=== PATIENT | female | born 1935 | race Hispanic/Latino ===

== ENCOUNTER 2021-01-26 14:14 | Outpatient (CLI) | payer MEDICARE, BC, OTHER ==
--- NOTE | 2021-01-26 15:54 | XRay Report ---
Left shoulder 3 views INDICATION: Shoulder pain FINDINGS: Glenohumeral and AC degenerative change. No acute fracture or dislocation is identified. No soft tissue abnormality. Signer Name: Rinku Weiss MD Signed: 01/26/2021 3:50 PM Workstation Name: [id number]
== END 2021-01-26 14:15 | disposition home or self-care (01) ==
LOC: SPVIMAG 14:14
PROVIDERS: ATTEND Internal Medicine
DX: M19.012 Primary osteoarthritis, left shoulder (principal)